=== PATIENT | male | born 1965 | race Caucasian/White ===

== ENCOUNTER 2016-06-27 09:49 | Emergency (ER) | payer SELFPAY ==
[2016-06-27 09:51] VITALS: BP 134/85; PULSE 72; RESP 20; TEMP 97.8; O2SAT 97
[2016-06-27 11:07] LABS: BLOOD, URINE NEG (NEG); GLUCOSE,URINE NEG (NEG); KETONE, URINE NEG (NEG); NITRITE,URINE NEG (NEG); PH, URINE 6.5 (5.0-8.5); SQUAMOUS EPITHELIAL CELL URINE <1 /hpf (0-5); URINE COLOR YELLOW (YELLW/STRAW)
[2016-06-27 11:14] LABS: COMMENT (UR) CATH-CULT NOT IND; CULTURE IF INDICATED CATH CULTURE NOT IND
--- NOTE | 2016-06-27 11:24 | PD ---
HPI Chief Complaint: Flank/Kidney Pain Time Seen by Provider: 11:22 Travel History International Travel<30 days: No Contact w/Intl Traveler<30days: No Traveled to known affect area: No History of Present Illness HPI 50-year-old male presents to the emergency department for evaluation of left- sided flank pain. Patient states typical when he has a kidney stone. He states began last night in his left flank area and radiates now down to his testicle. Pain is that constant, achy type of pain. He felt febrile and chills last night. No nausea vomiting. Urine output is decreased but without hematuria. No bowel changes. No other symptoms to report. PFSH Past Medical History Medical History: Denies Significant Hx Diminished Hearing: No Kidney Stones: Yes Past Surgical History Genitourinary Surgery: Yes (KIDNEY STONES) Tonsillectomy: Yes Social History Alcohol Use: Yes (occ) Tobacco Use: Yes Substance Use: No Allergies-Medications (Allergen,Severity, Reaction): Coded Allergies: No Known Allergies (Unverified , 06/27/16) Reported Meds & Prescriptions Reported Meds & Active Scripts Active Ibuprofen 800 Mg Tab 800 Mg PO TID PRN Review of Systems Except as stated in HPI: all other systems reviewed are Neg Physical Exam Narrative GENERAL: Well-nourished male patient, ambulatory no acute distress SKIN: Warm and dry. HEAD: Atraumatic. Normocephalic. EYES: Pupils equal and round. No scleral icterus. No injection or drainage. ENT: No nasal bleeding or discharge. Mucous membranes pink and moist. NECK: Trachea midline. No JVD. CARDIOVASCULAR: Regular rate and rhythm. No murmur appreciated. RESPIRATORY: No accessory muscle use. Clear to auscultation. Breath sounds equal bilaterally. GASTROINTESTINAL: Abdomen soft, non-tender, nondistended. Hepatic and splenic margins not palpable. MUSCULOSKELETAL: No obvious deformities. No clubbing. No cyanosis. No edema. Mild CVA tenderness. NEUROLOGICAL: Awake and alert. No obvious cranial nerve deficits. Motor grossly within normal limits. Normal speech. PSYCHIATRIC: Appropriate mood and affect; insight and judgment normal. Data Data Last Documented VS Vital Signs Date Time Temp Pulse Resp B/P Pulse Ox O2 Delivery O2 Flow Rate FiO2 06/27/16 13:19 98.0 76 17 120/78 100 06/27/16 09:51 Room Air Orders Urinalysis - C+S If Indicated (06/27/16 10:22) Complete Blood Count With Diff (06/27/16 11:22) Basic Metabolic Panel (Bmp) (06/27/16 11:22) Ct Abd/Pel W/O Iv Contrast (06/27/16 ) Gc And Chlamydia Pcr (06/27/16 11:24) Labs Laboratory Tests Test 06/27/16 06/27/16 06/27/16 10:35 11:22 11:40 Urine Color YELLOW Urine Turbidity CLEAR Urine pH 6.5 Urine Specific [place] 1.014 Urine Protein NEG mg/dL Urine Glucose (UA) NEG mg/dL Urine Ketones NEG mg/dL Urine Occult Blood NEG Urine Nitrite NEG Urine Bilirubin NEG Urine Urobilinogen LESS THAN 2.0 MG/DL Urine Leukocyte Esterase NEG Urine RBC 4 /hpf Urine WBC 1 /hpf Urine Squamous Epithelial <1 /hpf Cells Microscopic Urinalysis Comment CATH-CULT NOT IND White Blood Count 9.3 TH/MM3 Red Blood Count 5.02 MIL/MM3 Hemoglobin 16.3 GM/DL Hematocrit 46.1 % Mean Corpuscular Volume 91.9 FL Mean Corpuscular Hemoglobin 32.4 PG Mean Corpuscular Hemoglobin 35.2 % Concent Red Cell Distribution Width 12.5 % Platelet Count 215 TH/MM3 Mean Platelet Volume 9.3 FL Neutrophils (%) (Auto) 69.9 % Lymphocytes (%) (Auto) 20.3 % Monocytes (%) (Auto) 7.4 % Eosinophils (%) (Auto) 1.6 % Basophils (%) (Auto) 0.8 % Neutrophils # (Auto) 6.5 TH/MM3 Lymphocytes # (Auto) 1.9 TH/MM3 Monocytes # (Auto) 0.7 TH/MM3 Eosinophils # (Auto) 0.2 TH/MM3 Basophils # (Auto) 0.1 TH/MM3 CBC Comment DIFF FINAL Differential Comment Sodium Level 137 MEQ/L Potassium Level 4.4 MEQ/L Chloride Level 106 MEQ/L Carbon Dioxide Level 24.5 MEQ/L Anion Gap 7 MEQ/L Blood Urea Nitrogen 13 MG/DL Creatinine 0.93 MG/DL Estimat Glomerular Filtration 86 ML/MIN Rate Random Glucose 107 MG/DL Calcium Level 8.8 MG/DL Chlamydia trachomatis DNA NOT DETECTED (PCR) Neisseria gonorrhoeae DNA NOT DETECTED (PCR) MDM Medical Decision Making Medical Screen Exam Complete: Yes Emergency Medical Condition: Yes Medical Record Reviewed: Yes Differential Diagnosis UTI versus renal calculi versus STD Narrative Course 50-year-old male presents to emergency department for evaluation. Workup was initiated in triage. Once a medical bed is available, patient will be transferred and care assumed by the provider. Scripts Ibuprofen 800 Mg [id number] Mg PO TID PRN (PAIN SCALE 1 TO 10) #21 TAB Ref 0 Prov:Emily Garcia 06/27/16 Condition: Stable Eva Avery Jun 27, 2016 11:24
[2016-06-27 11:45] LABS: AUTOMATED NEUTROPHIL # 6.5 TH/MM3 (1.8-7.7); BASOPHIL # 0.1 TH/MM3 (0-0.2); BASOPHIL % 0.8 % (0.0-2.0); EOSINOPHIL # 0.2 TH/MM3 (0-0.4); EOSINOPHIL % 1.6 % (0.0-4.0); HEMATOCRIT 46.1 % (39.0-51.0); HEMO FLAGS DIFF FINAL; LYMPH % 20.3 % (9.0-44.0); LYMPHOCYTE # 1.9 TH/MM3 (1.0-4.8); MEAN CELL VOLUME 91.9 FL (80.0-100.0); MEAN CORPUSCULAR HEMOGLOBIN 32.4 PG (27.0-34.0); MEAN CORPUSCULAR HGB CONC 35.2 % (32.0-36.0); MONO % 7.4 % (0.0-8.0); NEUT % 69.9 % (16.0-70.0); PLATELET COUNT 215 TH/MM3 (150-450); RED BLOOD COUNT 5.02 MIL/MM3 (4.50-5.90); RED CELL DISTRIBUTION WIDTH 12.5 % (11.6-17.2); WHITE BLOOD COUNT 9.3 TH/MM3 (4.0-11.0)
--- NOTE | 2016-06-27 12:03 | RADRPT ---
EXAM DATE/TIME: 06/27/2016 11:38 [facility] COMPARISON: CT ABDOMEN & PELVIS W/O CONTRAST, November 03, 2014, 12:10. INDICATIONS : Left flank pain ORAL CONTRAST: No oral contrast ingested. RADIATION DOSE: 13.68 CTDIvol (mGy) MEDICAL HISTORY : Renal calculi. SURGICAL HISTORY : Tonsillectomy. ENCOUNTER: Initial ACUITY: 2 days PAIN SCALE: 7/10 LOCATION: Left flank TECHNIQUE: Volumetric scanning of the abdomen and pelvis was performed. Using automated exposure control and ad justment of the mA and/or kV according to patient size, radiation dose was kept as low as reasonably achievable to obtain optimal diagnostic quality images. FINDINGS: LOWER LUNGS: The visualized lower lungs are clear. LIVER: Homogeneous density without lesion. There is no dilation of the biliary tree. No calcified gallston es. SPLEEN: Normal size without lesion. PANCREAS: Within normal limits. KIDNEYS: Normal in size and shape. There is no mass, stone, or hydronephrosis. Multiple medullary type calcif ications in both kidneys without defined stones. ADRENAL GLANDS: Within normal limits. VASCULAR: There is no aortic aneurysm. BOWEL/MESENTERY: The stomach, small bowel, and colon demonstrate no acute abnormality. There is no free intraperitone al air or fluid. ABDOMINAL WALL: Within normal limits. RETROPERITONEUM: There is no lymphadenopathy. BLADDER: No wall thickening or mass. REPRODUCTIVE: Within normal limits. INGUINAL: There is no lymphadenopathy or hernia. MUSCULOSKELETAL: Within normal limits for patient age. CONCLUSION: Normal examination. No evidence of renal obstruction or active stone identified. The appendix is norm al. Jose Carlos Faustin MD on June 27, 2016 at 11:54 Board Certified Radiologist. This report was verified electronically.
[2016-06-27 12:16] LABS: BICARBONATE 24.5 MEQ/L (21.0-32.0); POTASSIUM 4.4 MEQ/L (3.5-5.1)
--- NOTE | 2016-06-27 12:24 | PD ---
Physical Exam Date Seen by Provider: Jun 27, 2016 Time Seen by Provider: 12:19 Narrative 50-year-old male presents to the emergency department for evaluation of left abdominal pain that started yesterday. Patient was initially seen in triage and workup was initiated in triage. The patient was then transferred to a medical bed. The patient states that he has a history of kidney stones this feels like his typical kidney stone. He states the pain started last night. He states the pain is minimal at this time, currently rates at 3/10. He denies any nausea or vomiting. No constipation or diarrhea. Patient denies any problems with urinary output. He denies any blood in his stool. He denies any other medical problems. Takes no prescribed medications. Patient denies any previous abdominal surgeries. GENERAL: Well-developed well-nourished male patient, ambulatory. Afebrile. SKIN: Warm and dry. HEAD: Normocephalic. Atraumatic. EYES: No scleral icterus. No injection or drainage. NECK: Supple, trachea midline. No JVD or lymphadenopathy. CARDIOVASCULAR: Regular rate and rhythm without murmurs, gallops, or rubs. RESPIRATORY: Breath sounds equal bilaterally. No accessory muscle use. Lungs sounds are clear to auscultation. GASTROINTESTINAL: Abdomen soft, non-tender, nondistended. No abdominal pain to palpation. MUSCULOSKELETAL: No cyanosis, or edema. BACK: Nontender without obvious deformity. No CVA tenderness. Data Data Last Documented VS Vital Signs Date Time Temp Pulse Resp B/P Pulse Ox O2 Delivery O2 Flow Rate FiO2 06/27/16 12:15 17 06/27/16 09:51 97.8 72 134/85 97 Room Air Orders Urinalysis - C+S If Indicated (06/27/16 10:22) Complete Blood Count With Diff (06/27/16 11:22) Basic Metabolic Panel (Bmp) (06/27/16 11:22) Ct Abd/Pel W/O Iv Contrast (06/27/16 ) Gc And Chlamydia Pcr (06/27/16 11:24) Labs Laboratory Tests Test 06/27/16 06/27/16 10:35 11:22 Urine Color YELLOW Urine Turbidity CLEAR Urine pH 6.5 Urine Specific [place] 1.014 Urine Protein NEG mg/dL Urine Glucose (UA) NEG mg/dL Urine Ketones NEG mg/dL Urine Occult Blood NEG Urine Nitrite NEG Urine Bilirubin NEG Urine Urobilinogen LESS THAN 2.0 MG/DL Urine Leukocyte Esterase NEG Urine RBC 4 /hpf Urine WBC 1 /hpf Urine Squamous Epithelial <1 /hpf Cells Microscopic Urinalysis Comment CATH-CULT NOT IND White Blood Count 9.3 TH/MM3 Red Blood Count 5.02 MIL/MM3 Hemoglobin 16.3 GM/DL Hematocrit 46.1 % Mean Corpuscular Volume 91.9 FL Mean Corpuscular Hemoglobin 32.4 PG Mean Corpuscular Hemoglobin 35.2 % Concent Red Cell Distribution Width 12.5 % Platelet Count 215 TH/MM3 Mean Platelet Volume 9.3 FL Neutrophils (%) (Auto) 69.9 % Lymphocytes (%) (Auto) 20.3 % Monocytes (%) (Auto) 7.4 % Eosinophils (%) (Auto) 1.6 % Basophils (%) (Auto) 0.8 % Neutrophils # (Auto) 6.5 TH/MM3 Lymphocytes # (Auto) 1.9 TH/MM3 Monocytes # (Auto) 0.7 TH/MM3 Eosinophils # (Auto) 0.2 TH/MM3 Basophils # (Auto) 0.1 TH/MM3 CBC Comment DIFF FINAL Differential Comment Sodium Level 137 MEQ/L Potassium Level 4.4 MEQ/L Chloride Level 106 MEQ/L Carbon Dioxide Level 24.5 MEQ/L Anion Gap 7 MEQ/L Blood Urea Nitrogen 13 MG/DL Creatinine 0.93 MG/DL Estimat Glomerular Filtration 86 ML/MIN Rate Random Glucose 107 MG/DL Calcium Level 8.8 MG/DL [facility] Medical Record Reviewed: Yes Supervised Visit with DARRIUS: No Interpretation(s) CT abdomen/pelvis - CONCLUSION: Normal examination. No evidence of renal obstruction or active stone identified. The appendix is normal. Differential Diagnosis Nephrolithiasis versus UTI versus ureterolithiasis versus diverticulitis Narrative Course 50-year-old male presents to the emergency Department treatment we should left abdominal pain that he states is consistent with previous nephrolithiasis. CBC is unremarkable. BMP shows no acute abnormality. UA shows no evidence of acute infection. CT abdomen/pelvis shows no acute abnormality. Patient is stable for discharge. He is follow up with primary care physician. He'll be discharged with a prescription for ibuprofen for pain. He is instructed to return for any acute worsening of symptoms. Patient is agreeable. The patient was discharged in stable condition with instructions, including return instructions and follow up instructions. Diagnosis Primary Impression: Abdominal pain Qualified Code: R10.32 - Left lower quadrant pain Referrals: Primary Care Physician call for appointment Patient Instructions: Abdominal Pain (ED), General Instructions Additional Instruction: Take ibuprofen as directed as needed with food for pain. Follow-up with your primary care physician. Return to the emergency department for any acute worsening of symptoms. Med/Other Pt SpecificInfo: Prescription(s) given Scripts Ibuprofen 800 Mg [id number] Mg PO TID PRN (PAIN SCALE 1 TO 10) #21 TAB Ref 0 Prov:Emily Garcia 06/27/16 Disposition: 01 DISCHARGE HOME Condition: Stable Emily Garcia Jun 27, 2016 12:21
[2016-06-27] MEDS ORDERED: IBUP800T23 PO (13:02)
[2016-06-27 13:19] VITALS: BP 120/78; TEMP 98
[2016-06-27 16:42] LABS: CHLAMYDIA PCR NOT DETECTED (NOT DETECT); NEISSERIA PCR NOT DETECTED (NOT DETECT)
== END 2016-06-27 13:18 | disposition home or self-care (01) ==
LOC: NEPC 09:49
DX: R10.32 Left lower quadrant pain (principal)
CPT/HCPCS: 74176; 80048; 81001; 85025; 87491; 87591